=== PATIENT | male | born 1955 ===

== ENCOUNTER 2019-05-13 09:45 | Inpatient (IN) | payer MEDICARE, MEDICAID ==
[~2019-05-13] VITALS: Ht 160 cm; Wt 71.7 kg
[2019-07-07] MEDS ORDERED: NITROFURANTOIN25 MG PO (10:58)
[2019-07-07] MEDS ORDERED: METFORMIN HCL500 M1 ORAL (10:58)
[2019-07-07] MEDS ORDERED: LORATADINE10 M1 PO (10:58)
[2019-07-07] MEDS ORDERED: FLOMAX0.4 MG ORAL (10:58)
[2019-07-07] MEDS ORDERED: ATORVASTATIN CA40 MG ORAL (10:58)
[2019-07-07] MEDS ORDERED: LISINOPRIL5 MG ORAL (10:58)
[2019-07-08] VITALS (18 sets, daily range): BP systolic 122–143; BP diastolic 79–94
[2019-07-08] MEDS ORDERED: ceFAZolin 1gm in D5W 55ml IVP ONE (07:00)
--- NOTE | 2019-07-08 07:51 | Pre-Procedure Note/Attestation ---
Pre-Procedure Note/Attestation Complete Prior to Procedure Planned Procedure: not applicable Procedure Narrative: open simple prostatectomy Indications for Procedure Pre-Operative Diagnosis: BPH Attestation I attest that I discussed the nature of the procedure; its benefits; risks and complications; and alternatives (and the risks and benefits of such alternatives ), prior to the procedure, with the patient (or the patient's legal call center representative). I attest that, if there was a reasonable possibility of needing a blood transfusion, the patient (or the patient's legal call center representative) was given the [facility] standardized written summary, pursuant to the Cruzito Tracy Blood Safety Act ([place] Health and Safety Code # 1645, as amended). I attest that I re-evaluated the patient just prior to the surgery and that there has been no change in the patient's H&P, except as documented below: Boby Koenig MD Jul 08, 2019 07:51
--- NOTE | 2019-07-08 08:24 | Anethesia Preoperative Eval ---
Anesthesia Pre-op PMH/ROS General Date of Evaluation: Jul 08, 2019 Anesthesiologist: Dionisio ASA Score: ASA 2 Mallampati Score Class I : Soft palate, uvula, fauces, pillars visible Class II: Soft palate, uvula, fauces visible Class III: Soft palate, base of uvula visible Class IV: Only hard plate visible Mallampati Classification: Class II Surgeon: Arya Diagnosis: BPH Surgical Procedure: open prostatectomy Anesthesia History: none Family History: no anesthesia problems Allergies: Coded Allergies: No Known Allergies (Unverified , 07/07/19) Medications: see eMAR Patient NPO?: Yes NPO Date: Jul 07, 2019 NPO Time: 1999 Past Medical History Cardiovascular: Reports: HTN, other - HLD; Denies: CAD, [place], valve dz, arrhythmia Pulmonary: Denies: asthma, COPD, YUDI, other Gastrointestinal/Genitourinary: Reports: other - BPH; Denies: GERD, CRI, ESRD Neurologic/Psychiatric: Denies: dementia, CVA, depression/anxiety, TIA, other Endocrine: Reports: DM; Denies: hypothyroidism, steroids, other HEENT: Denies: cataract (L), cataract (R), glaucoma, [place] (L), [place] (R), other Hematology/Immune: Denies: anemia, DVT, bleeding disorder, other Musculoskeletal/Integumentary: Denies: OA, RA, DJD, DDD, edema, other PSxH Narrative: denies Anesthesia Pre-op Phys. Exam Physician Exam Last Vital Signs Date Time Temp Pulse Resp B/P (MAP) Pulse Ox O2 Delivery O2 Flow Rate FiO2 07/08/19 07:42 Room Air 07/08/19 07:35 98.4 68 18 126/79 (95) 98 Constitutional: NAD Cardiovascular: RRR Respiratory: CTA Airway Exam Mallampati Score: Class II MO: full ROM: full Anesthesia Pre-op A/P Labs see chart Studies Pre-op Studies: EKG - sr Risk Assessment & Plan Assessment: ASA II Plan: GA Status Change Before Surgery: No Pre-Antibiotics Drug: TBD Zara Sprague MD Jul 08, 2019 08:24
[2019-07-08] MEDS ORDERED: Midazolam 2mg/2ml Inj IVP PRN (09:00)
[2019-07-08] MEDS ORDERED: fentaNYL 100 mcg/2 mL IV PRN (09:00)
[2019-07-08] MEDS ORDERED: Hydromorphone 0.5mg/0.5ml inj IVP PRN (09:00)
[2019-07-08] MEDS ORDERED: DiphenhydrAMINE 50mg/ml Inj IVP PRN (09:00)
[2019-07-08] MEDS ORDERED: LORazepam Inj 2mg/ml 1ml IV PRN (09:00)
[2019-07-08] MEDS ORDERED: LR 1000ml 1,000 ML IVLG SCH (09:00)
--- NOTE | 2019-07-08 09:07 | NUR ---
CASE MANAGEMENT:REVIEW 64 YR OLD MALE HERE FOR ELECTIVE SURGERY SI: BPH 98.4 68 18 126/79 98% ON RA IS: TO SURGERY FOR: OPEN SIMPLE PROSTATECTOMY : TO MED/SURG 3 EAST POST OP INTERQUAL CRITERIA MET
[2019-07-08] MEDS ORDERED: fentaNYL 100 mcg/2 mL IV ONE (10:28)
[2019-07-08] MEDS ORDERED: Lidocaine 1% MPF 10mg/ml 5ml ONE (10:28)
[2019-07-08] MEDS ORDERED: Propofol 200mg/20ml IV ONE (10:28)
[2019-07-08] MEDS ORDERED: Midazolam 2mg/2ml Inj ONE (10:28)
[2019-07-08] MEDS ORDERED: LR 1000ml ONE (10:30)
[2019-07-08] MEDS ORDERED: Ketorolac 30mg Inj ONE (10:30)
[2019-07-08] MEDS ORDERED: ProvayBlue 5mg/ml 10ml amp INJ ONE (10:45)
--- NOTE | 2019-07-08 12:16 | Brief Operative Note ---
Immediate Post Operative Note Operative Note Pre-op Diagnosis: BPH Procedure: Open retropubic prostatectomy Post-op Diagnosis: same Post-op Diagnosis: same as pre-op Surgeon: Josep koenig Anesthesia: general Specimen: yes Complications: none Condition: stable Fluids: 1000 Estimated Blood Loss: minimal Implant(s) used?: No Boby Koenig MD Jul 08, 2019 12:16
--- NOTE | 2019-07-08 12:22 | Immediate Post-Op Evaluation ---
Immediate Post-Op Evalulation Immediate Post-Op Evalulation Procedure: open prostatectomy Date of Evaluation: Jul 08, 2019 Time of Evaluation: 12:23 IV Fluids: 1L Blood Products: 0 Estimated Blood Loss: 250 Urinary Output: 0 Blood Pressure Systolic: 126 Blood Pressure Diastolic: 94 Pulse Rate: 77 Respiratory Rate: 16 O2 Sat by Pulse Oximetry: 100 Temperature (Fahrenheit): 97.2 Pain Score (1-10): 0 Nausea: No Vomiting: No Complications 0 Patient Status: awake, reacts, patent, none Hydration Status: adequate Drug: Ancef 1g Given Within 1 Hr of Incision: Yes Zara Sprague MD Jul 08, 2019 12:22
[2019-07-08 13:21] LABS: BASOPHILS % (AUTO) 0.3 % (0.0-2.0); EOSINOPHILS % (AUTO) 0.6 % (0.0-3.0); HEMATOCRIT 36.6 % (42.0-52.0); HEMOGLOBIN 12.3 G/DL (14.2-18.0); LYMPHOCYTES % (AUTO) 10.1 % (20.0-45.0); MEAN CORPUSCULAR VOLUME 89 FL (80-99); MONOCYTES % (AUTO) 4.8 % (1.0-10.0); NEUTROPHILS % (AUTO) 84.2 % (45.0-75.0); PLATELET COUNT 215 K/UL (150-450); RED BLOOD COUNT 4.13 M/UL (4.70-6.10); WHITE BLOOD COUNT 11.2 K/UL (4.8-10.8)
[2019-07-08 13:28] LABS: ANION GAP 9 mmol/L (5-15); BLOOD UREA NITROGEN 11 mg/dL (7-18); CALCIUM 8.3 MG/DL (8.5-10.1); CARBON DIOXIDE 26 MMOL/L (21-32); CHLORIDE 110 MMOL/L (98-107); POTASSIUM 4.1 MMOL/L (3.5-5.1); SODIUM 145 MMOL/L (136-145)
--- NOTE | 2019-07-08 14:50 | NUR ---
NURSE NOTES: Received patient from PACU nurse STEPHAN Pedersen patient asleep but arosable for name on CBI, draining light pink drainage, surgical site with some stain marked, call light with in reach, bed on low position locked, family at bedside home medication with family and family will take back home. Dr. Johnston notified pt. arrival on the floor.
--- NOTE | 2019-07-08 16:06 | NUR ---
NURSE NOTES: Hold Metformin till patient starts diet per Dr. Johnston, some home medication resumed.
[2019-07-08] MEDS: D5 1/2NS w/KCl 20mEq 1,000 ML IV SCH (16:12)
[2019-07-08] MEDS: ceFAZolin sod 2 GM in D5W 110 ML IV SCH (17:42)
[2019-07-08] MEDS: Docusate 100mg cap ORAL SCH (17:42)
[2019-07-08] MEDS: NovoLOG Insulin Flexpen SUBQ SCH ×2 (17:44→20:42)
--- NOTE | 2019-07-08 18:54 | NUR ---
NURSE NOTES: CBI output light pink no blood clot noted, 4000ml NS input and output 4300ml true urine output 300ml. Surgical site dressing stain is not increasing marked. pt. with out any distress.
--- NOTE | 2019-07-08 19:41 | NUR ---
HAND-OFF: Report given to STEPHAN Coombs stable condition CBI output light pink no clots noted.
--- NOTE | 2019-07-08 19:53 | NUR ---
NURSE NOTES: Received report from STEPHAN Meléndez. Patient is resting in bed with Kline catheter continuous bladder irrigation draining to gravity. Output is clear with light pink color, no clots noted. Coveriet dressing with serosanguineous staining. Patient denies pain at the moment. Patient on 2L of oxygen via NC. Will continue to monitor.
[2019-07-08] MEDS: Atorvastatin 80mg tab ORAL SCH (20:40)
--- NOTE | 2019-07-08 22:00 | NUR ---
NURSE NOTES: Patient on CBI draining to gravity light pink clear fluid to gravity. 4000mL infused, 4,200mL measured in collection bag with a true urine output of 200mL. New container started with 4000mL of normal saline for irrigation.
[2019-07-09] VITALS: BP 155/93
[2019-07-09] MEDS: D5 1/2NS w/KCl 20mEq 1,000 ML IV SCH (01:36)
[2019-07-09] MEDS: ceFAZolin sod 2 GM in D5W 110 ML IV SCH (01:36)
[2019-07-09 04:00] VITALS: BP 126/73
[2019-07-09] MEDS: HYDROmorphone 1mg/ml Carpuject IVP PRN ×3 (04:03→23:06)
[2019-07-09] MEDS: NovoLOG Insulin Flexpen SUBQ SCH ×4 (06:10→21:05)
[2019-07-09 06:42] LABS: BASOPHILS % (AUTO) 0.3 % (0.0-2.0); HEMATOCRIT 31.2 % (42.0-52.0); HEMOGLOBIN 10.6 G/DL (14.2-18.0); LYMPHOCYTES % (AUTO) 7.3 % (20.0-45.0); MEAN CORPUSCULAR VOLUME 89 FL (80-99); MONOCYTES % (AUTO) 8.3 % (1.0-10.0); NEUTROPHILS % (AUTO) 84.1 % (45.0-75.0); PLATELET COUNT 204 K/UL (150-450); RED BLOOD COUNT 3.52 M/UL (4.70-6.10); RED CELL DISTRIBUTION WIDTH 12.7 % (11.6-14.8); WHITE BLOOD COUNT 10.8 K/UL (4.8-10.8)
--- NOTE | 2019-07-09 07:03 | NUR ---
NURSE NOTES: Patient has continuous bladder irrigation running 4,000mL of NS to gravity via Kline catheter. 4,000mL were hung at 2200 and at 0100 4,200mL was collected for a true output of 200mL light pink clear drainage. At 0100 4,000mL of NS was hung and at 0700 4,400mL of light pink clear drainage was collected for a true output of 400mL. The total true output from 07/08 to 07/09 was 700mL of urine.
[2019-07-09 07:08] LABS: ANION GAP 9 mmol/L (5-15); BLOOD UREA NITROGEN 13 mg/dL (7-18); CALCIUM 8.1 MG/DL (8.5-10.1); CARBON DIOXIDE 27 MMOL/L (21-32); CHLORIDE 107 MMOL/L (98-107); CREATININE 1.1 MG/DL (0.55-1.30); POTASSIUM 4.5 MMOL/L (3.5-5.1); SODIUM 143 MMOL/L (136-145)
--- NOTE | 2019-07-09 07:56 | NUR ---
HAND-OFF: Report given to El Reyes RN. Patient draining light pink clear fluid via barrientos catheter to gravity. Patient requesting food but advised he is still NPO. Patient in stable condition.
--- NOTE | 2019-07-09 07:58 | NUR ---
NURSE NOTES: Received patient from Jose ROTHMAN in bed, denies any pain at this time. Patient is NPO and keeps asking for food, advised the patient that he can not have anything by mouth per MD order. Patient stated understanding. IV is intact and patent running D5 1/2NS with 20KCL @ 100cc/hr. Kline is on continuous irrigation draining by gravity, noted light pink output. Bed is on lowest position, brakes engaged for safety, bedside rails up x3. Will continue with the plan of care.
[2019-07-09 08:00] VITALS: BP 127/78
[2019-07-09] MEDS: Lisinopril 2.5mg tab ORAL SCH (08:51)
[2019-07-09] MEDS: Tamsulosin 0.4mg cap ORAL SCH (08:51)
[2019-07-09] MEDS: Docusate 100mg cap ORAL SCH ×2 (08:51→17:27)
--- NOTE | 2019-07-09 09:10 | NUR ---
PT EVALUATION NOTE Patient seen for initial evaluation, see complete evaluation for details. Patient presents with generalized weakness and pain which affects his ability to perform mobility tasks. Patient requires min assist for bed ability and SBA for transfers and ambulation. Patient will benefit from skilled inpatient PT intervention to address strength and balance to return to prior level of function. Anticipate discharge home once medically cleared by MD. No DME needs anticipated at this time. Addendum: 07/09/19 at 1039 by BEKAH LEWIS PT Amended: Links added.
--- NOTE | 2019-07-09 09:40 | NUR ---
Dr. Johnston gave new order to have patient on 1800 ADA diet. Order carried out.
[2019-07-09] MEDS ORDERED: Sterile Water Irrig 1000ml IRRIG ONE (10:30)
[2019-07-09] MEDS ORDERED: NS Irrig 1000ml ONE (10:30)
[2019-07-09] MEDS ORDERED: NS Irrig 4000ml IRRIG ONE (10:30)
[2019-07-09 12:00] VITALS: BP 130/87
--- NOTE | 2019-07-09 14:44 | 48 Hour Post Anesthesia Eval ---
Post Anesthesia Evaluation Procedure: open prostatectomy Date of Evaluation: Jul 09, 2019 Time of Evaluation: 14:43 Blood Pressure Systolic: 128 0: 76 Pulse Rate: 76 Respiratory Rate: 20 Temperature (Fahrenheit): 97.5 O2 Sat by Pulse Oximetry: 98 Airway: patent Nausea: No Vomiting: No Pain Intensity: 2 Hydration Status: adequate Cardiopulmonary Status: stable Mental Status/LOC: patient returned to baseline Follow-up Care/Observations: n/a Post-Anesthesia Complications: none Follow-up care needed: N/A Alexandro Waters MD Jul 09, 2019 14:44
[2019-07-09 16:00] VITALS: BP 134/86
--- NOTE | 2019-07-09 16:00 | Consultation ---
DATE OF CONSULTATION: 07/09/2019 INTERNAL MEDICINE CONSULTATION CONSULTING PHYSICIAN: Lenin Johnston M.D. HISTORY OF PRESENT ILLNESS: This is a 64-year-old male status post prostatectomy for BPH. He is doing well postoperative day #1. Currently, he has been NPO. He is a known diabetic and hypertensive as well as has hyperlipidemia. PAST MEDICAL HISTORY: Hypertension, diabetes mellitus, and hyperlipidemia. HOME MEDICATIONS: Flomax, metformin, lisinopril, Lipitor, and Claritin. SOCIAL HISTORY: Denies alcohol or tobacco usage. 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 REVIEW OF SYSTEMS: Denies any headaches, hematemesis, melena, hematochezia, or weight loss. PHYSICAL EXAMINATION: GENERAL: Reveals a 64-year-old male patient. HEENT: Unremarkable. LUNGS: Clear breath sounds bilaterally. ABDOMEN: Soft. NEUROLOGIC: Nonfocal. LABORATORY DATA: Lab testing is noncontributory with normal CBC and BMP preoperatively. IMPRESSION: 1. Postoperative day #1, status post prostatectomy. 2. Hypertension. 3. Diabetes mellitus. 4. Hyperlipidemia. 5. BPH. DISCUSSION: I have reviewed his records and note that the patient has undergone a cardiac catheterization, which shows nonobstructive CAD. Lexiscan has been negative. He is doing well postoperative day #1. I will start him on a diabetic diet, continue diabetes monitoring, IV fluids, ambulate. We will follow. Lenin Johnston M.D. DR: MEDHAT JOB#: [id number] CC:
[2019-07-09] MEDS: metFORMIN 500mg tab ORAL SCH (17:27)
--- NOTE | 2019-07-09 19:05 | NUR ---
NURSE NOTES: Patient has continuous bladder irrigation running 4,000mL of NS to gravity via Kline catheter. 4,000mL was hung at 0700 4,100mL was out, and true output of 100mL light pink clear drainage. At 0930, 4,000mL of NS was hung and 4,200mL of light pink clear drainage was collected for a true output of 200mL. At 1230 4,000mL was hung and 4,300mL of light pink clear drainage was collected for a true output of 300mL, and At 1620, 4,000mL of NS was hung output out is 3800 and still draining. The total true output out is 600mls.
--- NOTE | 2019-07-09 19:40 | NUR ---
NURSE NOTES: Patient received sitting on the side of bed, visibly anxious, c/o pain on left leg. talk therapy provided and assisted back to bed, bed alarm on. 3way Kline on CBI draining clear light yellow urine. No clots noted. Call light in reach, instructed to call for assistance. Will continue plan of care.
--- NOTE | 2019-07-09 19:45 | NUR ---
HAND-OFF: Report given to Johana ROTHMAN. Patient is in stable condition.
[2019-07-09 20:00] VITALS: BP 122/74
[2019-07-09] MEDS: Atorvastatin 80mg tab ORAL SCH (21:02)
[2019-07-09] MEDS: HYDROcodone/Acetamin 5/325 tab ORAL PRN (21:11)
[2019-07-10] VITALS: BP 105/70
[2019-07-10 04:00] VITALS: BP 126/86
[2019-07-10] MEDS: metFORMIN 500mg tab ORAL SCH ×2 (05:59→15:42)
[2019-07-10] MEDS: NovoLOG Insulin Flexpen SUBQ SCH ×2 (06:05→11:52)
--- NOTE | 2019-07-10 06:47 | NUR ---
NURSE NOTES: Spoke to Dr. Johnston re: pt c/o unilateral left leg pain. Received order for VD on left leg.
[2019-07-10 06:57] LABS: ANION GAP 8 mmol/L (5-15); BLOOD UREA NITROGEN 15 mg/dL (7-18); CALCIUM 8.6 MG/DL (8.5-10.1); CARBON DIOXIDE 28 MMOL/L (21-32); CHLORIDE 108 MMOL/L (98-107); POTASSIUM 4.3 MMOL/L (3.5-5.1); SODIUM 144 MMOL/L (136-145)
[2019-07-10 07:03] LABS: BASOPHILS % (AUTO) 0.2 % (0.0-2.0); EOSINOPHILS % (AUTO) 0.5 % (0.0-3.0); HEMATOCRIT 28.8 % (42.0-52.0); HEMOGLOBIN 9.8 G/DL (14.2-18.0); LYMPHOCYTES % (AUTO) 12.5 % (20.0-45.0); MEAN CORPUSCULAR VOLUME 88 FL (80-99); MONOCYTES % (AUTO) 8.3 % (1.0-10.0); NEUTROPHILS % (AUTO) 78.5 % (45.0-75.0); PLATELET COUNT 179 K/UL (150-450); RED BLOOD COUNT 3.28 M/UL (4.70-6.10); WHITE BLOOD COUNT 9.9 K/UL (4.8-10.8)
--- NOTE | 2019-07-10 07:39 | NUR ---
HAND-OFF: Report given to Eduardo ROTHMAN.
[2019-07-10 08:00] VITALS: BP 137/67
--- NOTE | 2019-07-10 08:00 | NUR ---
NURSE NOTES: Received report from Gregoria RN, pt in a/a/ox4 seating in bed eating breakfast with no signs of distress however pt still c/o of left leg pain closer to the groin area only on movement. RN will f/u with venous duplex. surgical dressing soil on the left area. Kline cath in place FR#24 with continues irrigation peach/pink color. IV on the right FISHER gauge#22 heplock. call light within reach, bed in lowest position. side rales up x2. I will f/u as needed. - Per Dr. Recinos to call dr. Koenig to ask if ok to d/c continues irrigation and to ask for d/c clearance. - plan for venous duplex today
--- NOTE | 2019-07-10 08:07 | Pulmonology Progress Note ---
Assessment/Plan Assessment/Plan IMPRESSION: 1. Postoperative day #2, status post prostatectomy. 2. Hypertension. 3. Diabetes mellitus. 4. Hyperlipidemia. 5. BPH. DISCUSSION: He is doing well postoperative day #2. I will continue diabetic diet, continue diabetes monitoring, IV fluids and ambulate. I will follow. Will request duplex LLE due to pain Lenin Johnston M.D. Subjective Interval Events: Having LLE pain; bladder irrigation ongoing. Constitutional: Reports: no symptoms HEENT: Repors: no symptoms Respiratory: Reports: no symptoms Cardiovascular: Reports: no symptoms Gastrointestinal/Abdominal: Reports: no symptoms Allergies: Coded Allergies: No Known Allergies (Unverified , 07/07/19) Objective Last 24 Hour Vital Signs Date Time Temp Pulse Resp B/P (MAP) Pulse Ox O2 Delivery O2 Flow Rate FiO2 07/10/19 04:00 99.0 99 20 126/86 (99) 98 07/10/19 00:00 99.1 98 20 105/70 (82) 94 07/09/19 23:36 98.8 07/09/19 21:41 98.8 07/09/19 21:00 Room Air 07/09/19 20:00 98.8 102 20 122/74 (90) 96 07/09/19 20:00 94 Room Air 21 07/09/19 16:00 98.6 97 18 134/86 (102) 97 07/09/19 14:44 76 20 98 07/09/19 12:52 98.4 07/09/19 12:00 98.4 89 18 130/87 (101) 96 07/09/19 09:00 Nasal Cannula 2.0 07/09/19 08:51 127/78 Intake and Output 07/09/19 07/10/19 18:59 06:59 Output Total 1100 ml Balance -1100 ml Output Urine Total 500 ml Other 600 ml General Appearance: no acute distress HEENT: normocephalic Respiratory/Chest: chest wall non-tender Cardiovascular: normal peripheral pulses, normal rate Abdomen: normal bowel sounds Microbiology Date/Time Source Procedure Growth Status 07/08/19 07:20 Nasal Nares MRSA Culture - Final NO METHICILLIN RESISTANT STAPH AUREUS... Complete Laboratory Tests 07/10/19 05:40: White Blood Count 9.9, Red Blood Count 3.28L, Hemoglobin 9.8L, Hematocrit 28.8L , Mean Corpuscular Volume 88, Mean Corpuscular Hemoglobin 29.8, Mean Corpuscular Hemoglobin Concent 34.0, Red Cell Distribution Width 13.0, Platelet Count 179, Mean Platelet Volume 6.3L, Neutrophils (%) (Auto) 78.5H, Lymphocytes (%) (Auto) 12.5L, Monocytes (%) (Auto) 8.3, Eosinophils (%) (Auto) 0.5, Basophils (%) (Auto) 0.2, Sodium Level 144, Potassium Level 4.3, Chloride Level 108H, Carbon Dioxide Level 28, Anion Gap 8, Blood Urea Nitrogen 15, Creatinine 1.0, Estimat Glomerular Filtration Rate > 60, Glucose Level 126H, Calcium Level 8.6 Current Medications Medications (Trade) Dose Ordered Sig/Kirsten Route PRN Reason Start Time Stop Time Status Last Admin Dose Admin Acetaminophen (Tylenol) 650 mg Q4H PRN ORAL FEVER (temp>100.5F) 07/08/19 12:15 08/07/19 12:14 Acetaminophen (Tylenol) 650 mg Q6H PRN ORAL Mild Pain (Pain Scale 1-3) 07/08/19 12:15 08/07/19 12:14 07/09/19 12:22 Acetaminophen/ Hydrocodone Bitart ([place] 5/325) 1 tab Q4H PRN ORAL Moderate Pain (Pain Scale 4-6) 07/08/19 12:15 07/15/19 12:14 07/09/19 21:11 Atorvastatin Calcium (Lipitor) 40 mg BEDTIME ORAL 07/08/19 21:00 08/07/19 20:59 07/09/19 21:02 Dextrose (Dextrose 50%) 25 ml Q30M PRN IV Hypoglycemia 07/08/19 16:15 08/07/19 16:14 Dextrose (Dextrose 50%) 50 ml Q30M PRN IV Hypoglycemia 07/08/19 16:15 08/07/19 16:14 Docusate Sodium (Colace) 100 mg TWICE A DAY ORAL 07/08/19 18:00 08/07/19 17:59 07/09/19 17:27 Hydromorphone HCl (Dilaudid) 1 mg Q3H PRN IVP pain score 4-6 07/08/19 12:15 07/15/19 12:14 07/09/19 23:06 Insulin Aspart (NovoLOG) BEFORE MEALS AND HS SUBQ 07/08/19 16:30 08/07/19 16:29 07/10/19 06:05 Lisinopril (Zestril) 5 mg DAILY ORAL 07/09/19 09:00 08/08/19 08:59 07/09/19 08:51 Metformin HCl (Glucophage) 500 mg BIAC ORAL 07/09/19 16:30 08/08/19 16:29 07/10/19 05:59 Ondansetron HCl (Zofran) 4 mg Q6H PRN IVP Nausea & Vomiting 07/08/19 12:15 08/07/19 12:14 Tamsulosin HCl (Flomax) 0.4 mg DAILY ORAL 07/09/19 09:00 08/08/19 08:59 07/09/19 08:51 Temazepam (Restoril) 7.5 mg HSPRN PRN ORAL Insomnia 07/08/19 21:00 07/15/19 20:59 Lenin Johnston MD Jul 10, 2019 08:07
[2019-07-10] MEDS: Docusate 100mg cap ORAL SCH (08:58)
[2019-07-10] MEDS: Lisinopril 2.5mg tab ORAL SCH (08:58)
[2019-07-10] MEDS: Tamsulosin 0.4mg cap ORAL SCH (08:58)
[2019-07-10] MEDS: HYDROcodone/Acetamin 5/325 tab ORAL PRN ×2 (11:29→15:42)
[2019-07-10 12:00] VITALS: BP 117/86
[2019-07-10] MEDS ORDERED: LEVAQUIN500 MG ORAL (13:32)
[2019-07-10] MEDS ORDERED: NORCO 5-325 TA1 EACH ORAL (13:33)
--- NOTE | 2019-07-10 17:35 | NUR ---
NURSE NOTES: Received order to d/c pt. discharge instructions and belongings given to patient. as well as RX for Levaquin PO, and [place] PO, he stated that he will go to his regular [facility] pharmacy to fill out RX. surgical dressing changed prior to d/c, IV removed prior to d/c, Kline cath bag changed to leg cath, pt verbalized understanding in how to empty bag. pt left the floor via w/c with no signs of distress however pt still complaining of left leg pain. MD's are aware. FWW given to patient and delivered from central supply closet. - RN arranged transportation with [facility] [phone]
--- NOTE | 2019-07-11 04:00 | Operative Note - Dictated ---
DATE OF OPERATION: 07/08/2019 PREOPERATIVE DIAGNOSES: 1. BPH. 2. Chronic urinary retention. POSTOPERATIVE DIAGNOSES: 1. BPH. 2. Chronic urinary retention. OPERATION: Open simple retropubic prostatectomy. MECHANICAL MAINTENANCE WORKER: Boby Koenig M.D. ANESTHESIA: General. FINDINGS: 1. Enlarged prostate. 2. Urinary retention with indwelling Kline catheter. INDICATIONS FOR SURGERY: The patient has had longstanding urinary retention. He had a Kline catheter and failed several voiding trials. Treatment options were explained to him in great length. Due to the size of the prostate, decision was made to proceed with simple retropubic prostatectomy. All potential complications were explained. He signed the consent. PROCEDURE IN DETAIL: The patient was brought to the operating room, placed in supine position. Prepped and draped in standard fashion. Under general anesthesia, a Pfannenstiel incision approximately 6 cm was made, and retrovesical space was opened. space was opened as well. Prostate was mobilized complex was dissected and between 2 stay sutures. Capsule of the prostate was opened and adenoma was enucleated in standard fashion. The bladder neck was carefully preserved. Stitches were placed at 3 and 5 o'clock. For hemostatic purposes, the mucosa of the bladder was also advanced into the prostatic capsule. No evidence of additional bleeding. A 24-T[place] Kline catheter was placed and left indwelling. Continuous irrigation was started. Capsule of the prostate was then closed with running 2-0 Vicryl sutures, and FloSeal was placed inside the prostatic capsule. No evidence of bleeding. The wound was then closed in two layers. Sponge count and instrument count were correct. [place] for the skin. Boby Koenig M.D. DR: ESE JOB#: [id number] CC:
--- NOTE | 2019-07-11 23:30 | Discharge Summary ---
Discharge Summary Discharge Summary _ DATE OF ADMISSION: 07/08/2019 DATE OF DISCHARGE: 07/10/2019 DISCHARGED BY: Dr. Boby Koenig CONSULTANTS: Dr. Rosa Johnston BRIEF HOSPITAL COURSE: Patient is a 64-year-old male, with history of BPH and chronic urinary retention , was admitted and underwent open simple retropubic prostatectomey. He tolerated procedure well. Intraoperative findings showed enlarged prostate. He had urinary retention. Postoperatively, he was admitted for postop care. He was given continuous bladder irrigation. He was followed by automation qa analyst. He has a history of diabetes mellitus and hypertension and hyperlipidemia. He was given IV fluids. Blood glucose was monitored. He was given metformin. He was placed on insulin sliding scale. He was given lisinopril and Lipitor. He complained of pain to the left leg. Venous duplex showed patent deep venous system. There was no evidence of acute thrombus. He was given physical therapy. Continuous bladder irrigation was discontinued. He was eventually cleared for discharge. He was discharged home with Kline catheter. FINAL DIAGNOSES: 1. BPH. 2. Chronic urinary retention. 3. Hypertension 4. Diabetes mellitus 5. Hyperlipidemia OPERATION: Open simple retropubic prostatectomy. DISPOSITION: Patient was discharged home. DISCHARGE MEDICATIONS: Refer to Discharge Medication List. DISCHARGE INSTRUCTIONS: Follow-up in a week. I have been assigned to complete a discharge summary on this account, I was not involved with the patient's management.--KAYLA Israel Jacqueline Robles NP Jul 11, 2019 23:30
--- NOTE | 2019-07-13 23:23 | Diagnostic Imaging Report ---
APPROVED REPORT CPT Code: 82250 Present Symptoms Lower Extremity Pain: Left LEFT LEG: Venous imaging reveals a patent deep venous system. There is no evidence of thrombus within the femoral, popliteal or tibial segments. The greater saphenous vein is also within normal limits. Doppler indicates normal spontaneous flow within these segments.
== END 2019-07-10 16:35 | disposition home health service (06) | DRG 708 ==
LOC: SDSOVERFLO 07-08 06:50 → 3E 07-08 14:50
PROC: 0VT00ZZ Resection of Prostate, Open Approach (ICD-10-PCS; principal; 2019-07-08 09:30)
DX: N40.1 Benign prostatic hyperplasia with lower urinary tract symptoms (principal); R33.8 Other retention of urine; E11.9 Type 2 diabetes mellitus without complications; I10 Essential (primary) hypertension; E78.2 Mixed hyperlipidemia; I25.10 Atherosclerotic heart disease of native coronary artery without angina pectoris; Z79.84 Long term (current) use of oral hypoglycemic drugs
CPT/HCPCS: 36415; 80048; 82962; 85025; 86850; 86900; 86901; 87081; 93971; 94003; 94150; J1815; J2250; J2405